=== PATIENT | female | born 1965 | race Caucasian/White ===

== ENCOUNTER → 2018-06-06 09:27 | Outpatient (CLI) | payer BC, SELFPAY ==
[2018-06-06 10:55] LABS: Basophils # 0.1 K/mm3 (0-0.2); Basophils % 1.2 % (0.1-2.0); Eosinophils # 0.3 K/mm3 (0.0-0.4); Eosinophils % 3.1 % (0.1-12.0); Hematocrit 44.7 % (37.0-47.0); Hemoglobin 13.9 g/dL (12.2-16.2); Lymphocytes # 3.4 K/mm3 (0.7-4.5); Lymphocytes % 40.6 K/mm3 (10-50); Mean Corpuscular HGB Conc 31.1 g/dL (31.8-35.4); Mean Corpuscular Hemoglobin 27.6 pg (27.0-31.2); Mean Corpuscular Volume 88.8 fl (81-99); Mean Platelet Volume 8.3 fl (7.4-10.4); Monocytes # 0.3 K/mm3 (0.1-1.0); Monocytes % 3.6 % (1.7-9.3); Neutrophils # 4.4 K/mm3 (1.8-7.8); Neutrophils % 51.5 % (37.0-80.0); Platelet Count 290 K/mm3 (142-424); Red Blood Count 5.03 M/mm3 (4.20-5.40); Red Cell Distribution Width 12.8 % (11.5-17.5); White Blood Count 8.5 K/mm3 (4.8-10.8)
[2018-06-06 11:02] LABS: Alanine Aminotransferase 19 U/L (12-78); Albumin Level 3.7 gm/dL (3.4-5.0); Alkaline Phosphatase 73 U/L (46-116); Anion Gap 12.3 mEq/L (5-15); Aspartate Amino Transferase 8 U/L (15-37); Bilirubin,Total 0.4 mg/dL (0.2-1.0); Blood Urea Nitrogen 15 mg/dL (7-18); Calcium 8.8 mg/dL (8.5-10.1); Carbon Dioxide 28 mmol/L (21.0-32.0); Chloride 107 mmol/L (98-107); Chol/HDL Ratio 4.3 (1-3.5); Cholesterol 230 mg/dL (140-200); Creatinine,Serum 0.69 mg/dL (0.55-1.02); Estimated Glomerular Filt Rate 89 ml/min (>60); GFR (African American) 108 ML/MIN (>60); Globulin 3.8 gm/dl (1.3-3.2); Glucose 119 mg/dL (74-106); HDL Cholesterol 53 mg/dL (29-89); LDL Cholesterol 163 mg/dL (0-130); Potassium 4.3 mmoL/L (3.5-5.1); Sodium 143 mmol/L (136-145); Total Protein,Serum 7.5 gm/dL (6.4-8.2); Triglycerides 68 mg/dL (30-200); VLDL Cholesterol 14 mg/dL (0-40)
[2018-06-06 11:04] LABS: C-Reactive Protein < 0.2 mg/L (0.0-0.9)
[2018-06-06 11:06] LABS: Hemoglobin A1C 6.1 % (0.0-7.0)
[2018-06-12 19:13] LABS: 1,25-Dihydroxy, Vitamin D-2 <10 pg/mL (.)
[2018-06-14 06:14] LABS: 1,25 Dihydroxy Vitamin D 43 pg/mL (.); 1,25-Dihydroxy, Vitamin D-3 43 pg/mL (.)
== END ==
PROVIDERS: Visit Provider Nurse Practitioner Obstetrics & Gynecology
DX: Z00.00 Encounter for general adult medical examination without abnormal findings (principal)
CPT/HCPCS: 36415; 80053; 80061; 82652; 83036; 85025; 86140

== ENCOUNTER → 2018-06-20 10:56 | Outpatient (CLI) | payer BC, SELFPAY ==
[2018-06-20 16:09] LABS: T4 (Thyroxine) 7.9 ug/dl (4.7-13.3); Thyroid Stimulating Hormone 0.89 uIU/ml (0.358-3.740)
[2018-06-21 17:13] LABS: Triiodothyronine (T3) Total 121 ng/dL (71-180)
== END ==
PROVIDERS: Visit Provider Family Medicine
DX: E01.0 Iodine-deficiency related diffuse (endemic) goiter (principal)
CPT/HCPCS: 36415; 84436; 84443; 84480

== ENCOUNTER 2025-06-25 19:09 | Emergency (ER) | payer BC, SELFPAY ==
--- NOTE | 2025-06-25 19:26 | XR_ITS ---
PROCEDURE INFORMATION: Exam: XR Left Wrist Exam date and time: 06/25/2025 7:22 PM Age: 59 years old Clinical indication: Injury or trauma; Fall; Blunt trauma (contusions or hematomas); Wrist; Left TECHNIQUE: Imaging protocol: Radiologic exam of the left wrist. Views: 3 or more views. COMPARISON: No relevant prior studies available. FINDINGS: Bones/joints: Moderately comminuted fracture of the left distal radius with articular involvement. Minimally displaced ulnar styloid fracture. Soft tissues: Moderate soft tissue swelling. IMPRESSION: 1. Moderately comminuted fracture of the left distal radius with articular involvement. 2. Minimally displaced ulnar styloid fracture.
[2025-06-25 19:30] VITALS: BP 257/126; PULSE 93; RESP 22; TEMP 36.8; O2SAT 98; BMI 33.4
[2025-06-25] MEDS: HYDROCODONE/APAP 5/325 MG TABLET 2 TAB PO (19:36)
--- NOTE | 2025-06-25 19:44 | ED_ITS ---
<Statement entered by Susanne Mas DO - 06/26/25 00:24> I was consulted by the VIVIANA, and we discussed the complexity of problems being addressed. I approve the treatment and management plan for this patient's care in the emergency department, thus performing a substantial portion of the medical decision making. Susanne Mas DO Discharge Plan Disposition Patient Disposition: Home, Self-Care Prescriptions Prescriptions: No Action No Known Home Medications Referrals Follow up/Referrals: Ted Covarrubias DO [Staff Physician, Orthopedics] - See instructions Lenny Sanz MD [Primary Care Provider, Medical] - See instructions Activity Restrictions/Add. Instructions Additional Instructions/Restrictions: Ice, elevate use ibuprofen and Tylenol for pain control. Call Dr. Covarrubias in the morning for appointment to cast. Clinical Impressions Clinical Impression: Distal radius fracture, left, Fracture of ulnar styloid Instructions Patient Instructions: DI for Forearm Fracture, DI for Distal Radius Fracture Print Language Print Language: Azeri Discharge ED Provider: Susanne Mas General Adult HPI General Chief complaint: PAIN Stated complaint: sent from [facility] poss buckle fraction L wrist Time Seen by Provider: 06/25/25 19:23 Mode of Arrival: Ambulatory Source of Information: Patient Description of Symptoms (Recalled from ER Triage Doc. by RN): pt reports she was sent over from the [facility] for a possible buckle fracture of the left wrist/forearm area. pt reports she was cleaning out a freezer in the garage when she slipped on melted ice cream and fell onto that the left arm extended. History of Present Illness HPI narrative: 59-year-old female presents to the ED today after going to the [facility] for a left wrist pain. She was sent here because she has a possible fracture to her left wrist. She was cleaning out her freezer and slipped on ice falling onto the left arm. She has not obvious fracture to that left radius and ulna. Patient did take some Arnica prior to arrival to the ED this is for swelling. Related Data Home Medications ?Medication ?Instructions ?Recorded ?Confirmed No Known Home Medications 06/06/1804/14 Allergies Allergy/AdvReac Type Severity Reaction Status Date / Time No Known Allergies Allergy Verified 06/25/25 18:48 [facility] Disclaimer: The information contained in this section may have been updated after the patient was seen, as this information can be updated by other users. Social History Smoking Status: Never smoker alcohol intake: current alcohol intake frequency: holidays/special occasions only substance use type: denies use current occupational status: other Travel in the last 8 weeks?: None Other Medical History Have you received the Flu Vaccine for this season: No ROS Obtained: Yes Systems reviewed as appropriate & no additional complaints except as documented Constitutional Constitutional: Reports as per HPI Physical Exam General General appearance: alert and in no apparent distress Head Head exam: normocephalic Eye Eye exam: Present PERRL ENT ENT exam: Present mucous membranes moist Neck Neck exam: Present trachea midline Respiratory Respiratory exam: Present normal lung sounds bilaterally Cardiovascular Cardiovascular exam: Present regular rate, normal rhythm, normal heart sounds, +S1 and +S2 Extremities Exam Extremities exam: Present normal inspection and tenderness (Left wrist) Neurological Exam Neurological exam: Present alert and oriented X3 Skin Skin exam: Present warm and dry Medical Decision Making Medical Records Screening: Per USPSTF and CDC recommendations, given the prevalence of disease in our region, it is our hospital?s policy to screen for HIV and viral Hepatitis for all patients aged 18 and over and those with ongoing risk factors. Gab Inquiry Pt receiving controlled substance: No Gab was queried for this patient: No Vital Signs: 06/25/25 19:30 06/25/25 20:22 06/25/25 20:35 Temperature 98.2 F 98.2 F Temperature Source Temporal Artery Scan Oral Pulse Rate 89 Pulse Rate [Right] 93 H Respiratory Rate 22 17 Blood Pressure 197/107 H 197/109 H Blood Pressure [Right Arm] 257/126 H Blood Pressure Mean [Right Arm] 169 02 Sat by Pulse Oximetry 98 96 Oxygen Delivery Method Room Air 06/25/25 20:55 Temperature 98.1 F Temperature Source Pulse Rate 89 Pulse Rate [Right] Respiratory Rate 17 Blood Pressure 197/107 H Blood Pressure [Right Arm] Blood Pressure Mean [Right Arm] 02 Sat by Pulse Oximetry Oxygen Delivery Method Orders (Tests/Meds): ED MEDICATIONS Discontinued Medications Generic Name Dose Route Start Last Admin Trade Name Freq PRN Reason Stop Dose Admin Hydrocodone Bitart/Acetaminophen 2 tab 06/25/25 19:26 06/25/25 19:36 Hydrocodone/Apap 5/325 Mg Tablet PO 06/25/25 19:27 2 tab ONCE ONE Administration Ondansetron HCl 4 mg 06/25/25 19:26 06/25/25 19:42 Ondansetron 4mg Odt SL 06/25/25 19:27 Not Given ONCE ONE ORDERS Category Date Time Status Wrist XR left minimum 3 views [XR wrist LT min 3V] Stat Exams 06/25/25 19:26 Completed Medical Decision Narrative: patient is a 59-year-old female presenting to the emergency department for evaluation of left wrist pain after a fall. Patient is hemodynamically stable and nontoxic-appearing upon arrival, afebrile. Differential diagnosis includes radial fracture versus sprain strain. Workup will be conducted with specific imaging. Initial inventions include analgesics. Imaging informally interpreted by me and remarkable for distal radial and ulnar fracture. I used a hematoma block and manipulated by manual manipulation just a small amount. Then placed a volar splint. Formal imaging read remarkable for distal radial fracture with articular involvement and moderately comminuted. Ulnar fracture as well. I talked to Dr. Covarrubias about seeing this and he agreed to see this in clinic. Patient will call in the morning. Upon repeat evaluation patient's pain is improved. Procedures Orthopedic Fracture Reduction Fracture #1: Time Out Performed: Yes Side: left Fracture Reduction Location: radius Analgesia: hematoma block Technique: direct manipulation Post-reduction neuro exam: intact Post-reduction vascular exam: intact Splint Applied: Yes Patient Tolerated Procedure: well Orthopedic Splinting/Casting Injury #1: Side: left Upper Extremity Injury Location: wrist Upper Extremity Immobilizer: volar splint Post Cast/Splinting Neuro Status: intact Post Cast/Splinting Vasc Status: intact Critical Care Critical Care Time Critical Care Time: No
[2025-06-25 20:22] VITALS: BP 197/107
[2025-06-25 20:35] VITALS: BP 197/109; PULSE 89; RESP 17; TEMP 36.8; O2SAT 96
[2025-06-25 20:55] VITALS: BP 197/107; PULSE 89; RESP 17; TEMP 36.7; O2SAT 98
== END 2025-06-25 21:00 | disposition home or self-care (01) ==
PROVIDERS: Emergency Provider Student in an Organized Health Care Education/Training Program; PCP Family Medicine
DX: S52.502A Unspecified fracture of the lower end of left radius, initial encounter for closed fracture (principal); S52.612A Displaced fracture of left ulna styloid process, initial encounter for closed fracture; W18.30XA Fall on same level, unspecified, initial encounter
CPT/HCPCS: 29125; 73110; 99283; Q0162

== ENCOUNTER 2025-07-02 11:22 | Outpatient (CLI) | payer BC, SELFPAY ==
[2025-07-02 09:06] VITALS: BMI 33.4
--- NOTE | 2025-07-02 11:25 | XR_ITS ---
FINAL REPORT CLINICAL HISTORY: Pre op for surgery. 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 FINDINGS: 2 views of the chest were obtained . The heart is normal in size. The mediastinum is within normal limits. The lungs are clear. There is no pneumothorax. Osseous structures are unremarkable. IMPRESSION: No acute cardiopulmonary process. Reviewed, Interpreted and Dictated by Mark Clark MD Transcribed by Amisha Roberts Authenticated and [facility]
--- NOTE | 2025-07-02 11:56 | ECG_ITS ---
APPROVED REPORT Exam: Resting ECG HR:83 bpm ECG Measurements Heart Rate 83 AXES CA 167 P 47 QRSd 104 QRS -5 QT 365 T 57 QTc 404 Conclusion SINUS RHYTHM NONSPECIFIC T-WAVE ABNORMALITY BORDERLINE ECG UNCONFIRMED REPORT Electronically signed by : Emerson Zacarias MD 07/02/2025 19:03:35
[2025-07-02 12:04] LABS: Hematocrit 41.5 % (37.0-47.0); Hemoglobin 13.5 g/dL (12.2-16.2); Immature Granulocytes % 0.1 %; Mean Corpuscular HGB Conc 32.5 g/dL (31.8-35.4); Mean Corpuscular Hemoglobin 28.2 pg (27.0-31.2); Mean Corpuscular Volume 86.6 fl (81-99); Nucleated Red Blood Cells % 0 %; Platelet Count 317 K/mm3 (142-424); Red Blood Count 4.79 M/mm3 (4.20-5.40); Red Cell Distribution Width-SD 39.2 fL; White Blood Count 8.4 K/mm3 (4.8-10.8)
[2025-07-02 12:12] LABS: Anion Gap 12.0 mEq/L (5-15); Blood Urea Nitrogen 14 mg/dl (7-17); Calcium 9.0 mg/dl (8.4-10.2); Carbon Dioxide 25 mmol/L (22.0-30.0); Chloride 105 mmol/L (98-107); Creatinine Clearance Estimated 118 mL/min (50-200); Creatinine,Serum 0.80 mg/dl (0.52-1.04); Estimated Glomerular Filt Rate 73 ml/min (>60); GFR (African American) 89 ML/MIN (>60); Glucose 106 mg/dl (74-100); Potassium 4.0 mmoL/L (3.5-5.1); Sodium 138 mmol/L (136-145)
== END 2025-07-02 23:59 | disposition home or self-care (01) ==
PROVIDERS: PCP Family Medicine; Visit Provider Orthopaedic Surgery
DX: Z01.810 Encounter for preprocedural cardiovascular examination (principal); Z01.811 Encounter for preprocedural respiratory examination; Z01.812 Encounter for preprocedural laboratory examination; R94.31 Abnormal electrocardiogram [ECG] [EKG]
CPT/HCPCS: 71046; 80048; 85025; 93005

== ENCOUNTER 2025-07-03 06:05 | Day surgery (SDC) | payer BC, SELFPAY ==
[2025-07-02 10:06] VITALS: BP 164/96; PULSE 82; RESP 18; TEMP 36; O2SAT 94
[2025-07-02 10:21] VITALS: BP 169/94; PULSE 94; O2SAT 95
[2025-07-02 10:36] VITALS: BP 180/90; PULSE 79; O2SAT 96
[2025-07-02 14:11] VITALS: BMI 33.4
[2025-07-03 06:19] VITALS: BP 200/90; PULSE 85; RESP 18; TEMP 36.4; O2SAT 98
[2025-07-03] MEDS: LACTATED RINGERS 1000ML 1,000 ML 100 ML IV (06:45)
--- NOTE | 2025-07-03 07:06 | P.PNANES_ITS ---
[facility] Disclaimer: The information contained in this section may have been updated after the patient was seen, as this information can be updated by other users. Medical History History of basal cell carcinoma HTN (hypertension) Surgical History History of surgery on arm History of bilateral breast reduction surgery Family History Other Family history of cancer Family history of diabetes mellitus Family history of hypertension Social History (Updated 07/03/25 @ 06:26 by Vilma Doss RN) Smoking Status: Never smoker alcohol intake: never substance use type: denies use current occupational status: unemployed Travel in the last 8 weeks?: Inside the [place] Have you lived/traveled outside US in past 30 days?: No Contact w/someone who lives/traveled outside US past 30 days?: No Exposure to someone with infectious disease in past 14 days?: No Do you have a fever (greater than 100.4 F or 38 C)?: No Have you tested positive for COVID-19?: No Exposed to someone with COVID-19 in past 14 days?: No Do you have a sore throat?: No Do you have a cough?: No Do you have any weakness?: No Are you experiencing any nausea/vomitting?: No Do you have any diarrhea?: No Are you experiencing any unusual bleeding?: No Do you have any muscle aches/pain?: No Do you have any abdominal pain?: No Are you experiencing loss of taste or smell?: No [facility] Anesthesia Checklist Patient Identification Patient Identification: Arm Band Structural Data Admitted From: Home Planned Operative Procedure/s: ORIF Left Distal Radius Consent for Planned Operative Procedure(s) Verified: Yes Verified Documents: Surgical Consent and History and Physical NPO Status Verified Time NPO: 00:00 Additional verifications Anesthesia Reactions: No Airway Assessment Mallampati Score:: Class II C-Spine Mobility Assessed: Yes TMJ Mobility Assessed: Yes Dentition: Good Dentition Neurological Assessment Level of Consciousness: Awake, Alert and Appropriate Anesthesia Plan Anesthesia Risk discussed: Yes Anesthesia Plan: Verified ASA Class: II Anesthesia Type: General w/block (Left Supraclavicular Nerve Block. Risks/benefits explained. Pt verbalized understanding)
[2025-07-03] MEDS: 0.9 % SODIUM CHLORIDE 100 ML 25 ML IV (07:29)
--- NOTE | 2025-07-03 09:31 | XR_ITS ---
FINAL REPORT CLINICAL HISTORY: ORIF LEFT WRIST 0.55 min 1.59 mGy FINDINGS: FLUOROSCOPY LESS THAN 1 HOUR HISTORY: Fluoroscopy guidance. FINDINGS: Fluoroscopic guidance was provided for ORIF of the left wrist. A single spot film was obtained. A total of 0.55 minutes of fluoroscopy time were used. DAP: 1.59 mGy IMPRESSION: As above. Reviewed, Interpreted and Dictated by Mark Clark MD Transcribed by Yessenia Milan Authenticated and [facility]
[2025-07-03 09:35] VITALS: BP 145/87; PULSE 74; RESP 16; TEMP 36.5; O2SAT 97
--- NOTE | 2025-07-03 09:37 | EXP.ANES.I ---
[facility] Anesthesia Record Part I Anesthesia Record I Intake, IV Amount: 800 Hydration: Adequate Estimated blood loss (mL): 10 Urine output (mL): 0 Blood Products used (#): none Blood Pressure: 149/87 SaO2: 96 Pulse Rate: 74 Airway Patency: Patent Respiratory Rate: 18 Temperature: 98 F Patient is:: Awake, Nasal O2 and Stable Stable to PACU at:: 09:45
[2025-07-03 09:38] VITALS: BP 149/87; PULSE 74; RESP 18; TEMP 36.6; O2SAT 96
[2025-07-03 09:45] VITALS: BP 147/82; PULSE 76; RESP 16; O2SAT 97
--- NOTE | 2025-07-03 09:46 | P.OP_ITS ---
Date of procedure: 07/03/25 Pre-op Diagnosis:: Left distal radius fracture intra-articular 3+ part Post-op Diagnosis:: Same Procedure performed:: Open reduction internal fixation left distal radius fracture intra-articular 3+ part with volar plating Surgeon:: Ted Covarrubias DO Retention Manager(s):: Quintin TALBOT MANAGER MARKET INTELLIGENCE:: Ghassan Tran Anesthesia: GETA Estimated blood loss (mL): 0 Clinical Note:: Implants Synthes locking volar distal radius plate set Operative findings:: See dictation Operative note:: Patient identified preoperatively. Left wrist marked with yes my initials. Underwent a block with anesthesia taken the operating room placed upon operating bed. General anesthesia administered and airway secured. Left upper extremity prepped and draped in normal sterile fashion. Once prepped and draped final operative timeout performed to identify proper patient procedure and extremity. Everyone involved in the case agreed. There is no counter indication beginning. Did receive preoperative antibiotics. Marking pen was used to make planned incision over the volar wrist and marked the radial artery Esmarch was used to exsanguinate the extremity pneumatic tourniquet inflated to 250 mmHg. Skin knife is used to incise the skin careful dissection is taken down to the FCR tendon sheath the FCR tendon sheath was ope christiano FCR tendon was retracted radially throughout the procedure to protect the radial artery. This exposed the floor of the FCR which was opened in line. Self-retaining retractor was placed and pronator quadratus musculature was damaged from the fracture but was split in an L-type fashion with a [place]vue elevator to expose the fracture and fracture hematoma which was evacuated. A [place] elevator and osteotome was utilized to help leverage the volar cortex to get a good read for reduction once adequately reduced and in good alignment a K wire was placed to hold this fracture up limited early. Once this was performed the plates were selected for left-sided Synthes volar plates 3 hole plate was selected and in the standard version placed on the bone x-rays reviewed the AP and lateral views that show good placement of the plate and reduction of the fracture the plate then was placed to the bone with a cortical screw followed by distal locking screws and 2 additional locking screws in the shaft with proper trajectory and proper length. This was reviewed on the AP and lateral views and found to be in good reduction and alignment. Irrigation of the wound was performed temporary fixation K wire removed deep layers closed with Vicryl skin closed with 3-0 nylon stitch sterile dressing placed with a padded volar splint. Patient waken anesthesia taken recovery in stable condition. Condition: stable Disposition: PACU Complications:: None apparent
[2025-07-03 09:55] VITALS: BP 171/90; PULSE 80; RESP 16; O2SAT 95
[2025-07-03 10:05] VITALS: BP 173/92; PULSE 78; RESP 16; O2SAT 95
--- NOTE | 2025-07-04 08:56 | EXP.ANES.II ---
[facility] Anesthesia Record Part II Anesthesia Record Part II Discharge Time: 10:05 Destination: Surgical Day Care (OP Surgery) PACU nurse assessment reviewed?: Yes Patient Condition:: Good Anesthesia Complications:: None Swallowing reflex intact?: Yes Airway Patency: Patent Cyanosis?: No Blood Pressure: 173/92 SaO2: 95 Respiratory Rate: 16 Pulse Rate: 78 Temperature: 98 F Mental Status: Alert & Oriented Pain level:: 0 Nausea and/or vomitting:: None Intake, IV Amount: 0 Hydration: Adequate
[2025-07-04 08:57] VITALS: BP 173/92; PULSE 78; RESP 16; TEMP 36.6; O2SAT 95
== END 2025-07-03 10:50 | disposition home or self-care (01) ==
PROVIDERS: PCP Family Medicine; Visit Provider Orthopaedic Surgery
PROC: (CPT 25609; principal; 2025-07-03 07:30)
DX: S52.572A Other intraarticular fracture of lower end of left radius, initial encounter for closed fracture (principal); W01.0XXA Fall on same level from slipping, tripping and stumbling without subsequent striking against object, initial encounter; Y93.E9 Activity, other interior property and clothing maintenance; Y92.008 Other place in unspecified non-institutional (private) residence as the place of occurrence of the external cause; Y99.8 Other external cause status
CPT/HCPCS: 25609; 73100; 76000; 96374; C1713; J0690; J1100; J1200; J2003; J2250; J2405; J2704; J3010; J7120; Q9967

== ENCOUNTER 2025-07-18 08:46 | Outpatient (CLI) | payer BC, SELFPAY ==
--- NOTE | 2025-07-18 08:46 | XR_ITS ---
FINAL REPORT CLINICAL HISTORY: left wrist fx f/u COMPARISON: 07/03/2025 FINDINGS: AP, oblique, and lateral views of the left wrist were obtained. A splint is noted. There are changes from interval ORIF of a distal radial fracture. There is no evidence of hardware complication. The joint spaces are preserved. The soft tissues are normal. IMPRESSION: Changes from interval ORIF of a distal radial fracture, without evidence of hardware complication. Reviewed, Interpreted and Dictated by Yajaira Boateng MD Transcribed by Adri Cisneros Authenticated and [facility]
== END 2025-07-18 23:59 | disposition home or self-care (01) ==
LOC: RAD 08:46
PROVIDERS: Visit Provider Orthopaedic Surgery
DX: S52.502A Unspecified fracture of the lower end of left radius, initial encounter for closed fracture (principal); S52.612A Displaced fracture of left ulna styloid process, initial encounter for closed fracture; Z98.890 Other specified postprocedural states
CPT/HCPCS: 73110

== ENCOUNTER 2025-08-12 09:06 | Outpatient (CLI) | payer BC, SELFPAY ==
--- NOTE | 2025-08-12 09:07 | XR_ITS ---
FINAL REPORT CLINICAL HISTORY: left wrist post op FINDINGS: AP, oblique, and lateral views of the left wrist were obtained. There is no prior exam for comparison. There are changes from ORIF of the distal radius. Hardware appears intact. An ulnar styloid process fracture is likely subacute or chronic. Osteopenia is noted. There is mild degenerative disease. No acute soft tissue abnormality. IMPRESSION: Post-ORIF changes with intact hardware. Reviewed, Interpreted and Dictated by Yajaira Boateng MD Transcribed by Yessenia Milan Authenticated and [facility]
--- OUTSIDE RECORDS SUMMARY | 2025-08-12 09:34 | XMS_ITS | Patient Health Record ---
Author Organization [facility] Address [address] [id number] Care Team Providers Care Behavior Specialist Name Role Phone Chinmay Sanz Primary Care Provider Allergies No Known Allergies Immunizations Vaccine Route Administration Date Status Comme nts xFlu shot-36 months and older IM Intramuscular 08/30/2007 Administered Problems Problem Type SNOMED Code ICD Code Onset Dates Problem Status W/U Status Risk Notes Problem Hyperlipidemia (77168940) Hyperlipidemia (272.4) Active confirmed Problem Essential hypertension (25838803) Essential hypertension (I10) Active confirmed Problem Dyslipidemia (081331522) Dyslipidemia (E78.5) Active confirmed Problem Thyromegaly (4116469) Thyromegaly (E01.0) Active confirmed Plan Of Treatment No Information Insurance Providers Payer Name Payer Address Payer Phone Subscriber Number Group Number Insured Name Patient Relationship to Insured Coverage Start Date Coverage End Date [employer] [address] [place] [address] [id number] RAJIV MORRISSEY Spouse - patient is the spouse of the insured Medications Administered Medication Instructions Date of Administration Dosage Notes Dexamethasone 08/30/2007 1 mL Medical (General) History Medical History History ICD Code HBP HLP positive TB reactor Declines health maintenance testing or b lood work Surgical History Surgery Date(Month/Year) tonsillectomy 1974 C section 1997 breast reduction 04/2010 teeth pulled, implants placed 2019 Hospitalization History Reason Date(Month/Year) child 1997
== END 2025-08-12 23:59 | disposition home or self-care (01) ==
LOC: RAD 09:07
PROVIDERS: Visit Provider Orthopaedic Surgery
DX: S52.612D Displaced fracture of left ulna styloid process, subsequent encounter for closed fracture with routine healing (principal); X58.XXXD Exposure to other specified factors, subsequent encounter; M85.88 Other specified disorders of bone density and structure, other site; M19.032 Primary osteoarthritis, left wrist
CPT/HCPCS: 73100